=== PATIENT | female | born 1985 | race Caucasian/White ===

== ENCOUNTER 2022-07-25 14:09 | Outpatient (REF) | payer BC, SELFPAY ==
--- NOTE | 2022-07-25 13:15 | PAPFT_PTH ---
PATIENT: Jenelle Zhu LOC: [facility] U#:[id number] AGE/SX: 37/F ROOM: RE07/25/[address]: Arminda Sorto NP : 1985 BED: DIS: 07/25/2022 SPEC #: [id number] RECD: 07/25/22 18:04 STATUS: ROSA CHO #: [id number] LILI: 07/25/22 13:[address]: Arminda Sorto NP DEPT: [facility] Cytology RECD BY: Zaida Edmond ENTERED: 07/25/22 18:05 SP TYPE: PAPFT OTHR DR: Hazel Hand, INDUSTRIAL AUTOMATION ENGINEER Tissues: 1 - CX/ENDOCX FOR PAP SMEARS Procedures: PAP THIN PREP/UVM Screening HPV DNA PROBE Comments: [id number]
== END 2022-07-25 14:10 | disposition home or self-care (01) ==
LOC: LBN 14:09
PROVIDERS: PCP Nurse Practitioner Family; Visit Provider Nurse Practitioner Women's Health
DX: Z12.4 Encounter for screening for malignant neoplasm of cervix (principal); Z11.51 Encounter for screening for human papillomavirus (HPV)
CPT/HCPCS: 88142; 87624

== ENCOUNTER 2023-01-18 03:18 | Outpatient (CLI) | payer BC, SELFPAY ==
[2023-01-18 13:15] LABS: Anion Gap 8.3 mmol/L (3-11); BUN 11 mg/dL (7-18); CO2 26.7 mmol/L (21.0-32.0); CREATININE 0.6 mg/dL (0.55-1.02); Calcium 8.9 mg/dL (8.5-10.1); Calculated LDL 137 mg/dL (<100); Chloride 100 mmol/L (98-107); Cholesterol 198 mg/dL (<200); Estimated GFR 118.49 (mL/min/1.73m2); Glucose 110 mg/dL (74-106); HDL Cholesterol 44 mg/dL (40-60); Potassium 4.2 mmol/L (3.5-5.1); Sodium 135 mmol/L (136-145); TSH (W/Ref FT4) 2.03 uIU/mL (0.36-3.74); Triglyceride 89 mg/dL (<150)
[2023-01-18 13:28] LABS: Hemoglobin A1C 5.8 % (<5.7)
== END 2023-01-18 03:19 | disposition home or self-care (01) ==
PROVIDERS: PCP Nurse Practitioner Family; Visit Provider Nurse Practitioner Family
DX: Z00.00 Encounter for general adult medical examination without abnormal findings (principal)
CPT/HCPCS: 36415; 80048; 80061; 83036; 84443

== ENCOUNTER 2023-12-24 11:45 | Emergency (ER) | payer BC, SELFPAY ==
[2023-12-24 11:54] VITALS: BP 138/106; PULSE 88; RESP 18; TEMP 36.7; O2SAT 98
[2023-12-24 12:04] VITALS: BP 135/81; PULSE 74; RESP 16; TEMP 36.6; O2SAT 95
--- NOTE | 2023-12-24 12:05 | ED.GENADUL_ITS ---
Discharge Plan Disposition Patient Disposition: Home Condition: Stable Discharge Details Clinical Impression: Molluscum contagiosum infection, Cellulitis of dorsum of hand, Cellulitis of left leg without foot Primary Care Provider: Hazel Hand ED Provider: Cristel Clifton Home Meds and New Rx's Prescriptions: New cephalexin 500 mg capsule 500 mg PO BID 7 Days Qty: 14 0RF Rx Instructions: Take 1 capsule by mouth twice daily for the next 7 days Continued albuterol sulfate [Proventil HFA] 90 mcg/actuation HFA aerosol inhaler 2 puff inhalation Q6H PRN (Reason: shortness of breath or wheezing) Qty: 8.5 0RF buspirone 5 mg tablet 5 mg PO BID PRN (Reason: anxiety) Qty: 180 3RF multivitamin Tablet 1 tab PO DAILY mupirocin 2 % ointment 1 applic topical TID Qty: 15 0RF Rx Instructions: apply three times daily for 7 days clindamycin phosphate 1 % gel 1 applic topical DAILY PRN (Reason: acne) Qty: 60 3RF Discharge Instructions Instructions: Molluscum Contagiosum (DC), Cellulitis (Skin Infection), Adult ED Additional Instructions: Please take the antibiotic as directed twice daily with yogurt or a probiotic as prescribed. At this time it does appear to be molluscum contagiosum with surrounding infection. Please continue using the mupirocin ointment as previously prescribed. I will also give you an oral antibiotic twice daily for the next 7 days. Keep clean and dry. May keep covered in order to prevent spreading of this viral skin condition. You may try [id number]-mwq-[id number] remedies such as molluscum Rx, apple cider vinegar applied with a Q-tip once or twice daily. Try not to pick or scratch at the lesions. Follow up with primary care provider in 3-5 days for a recheck. Return to ED sooner if any worsening spreading redness after 2 to 3 days of the antibiotic, fever or chills, vomiting or concerns. Stand Alone Forms: Work Release Referrals: Hazel Hand, DIRECT SALES PROFESSIONAL [Primary Care Provider] - 3 days (rash re-check) Discharge Data Discharge Date/Time-TO BE ENTERED AT DEPARTURE: 12/24/23 12:38 HPI General Mode of arrival: ambulatory . Date/Time Provider Initiated Documentation: 12/24/23 11:59 . Limitations to Documentation: no limitations . Information obtained by: patient, RN notes reviewed and old records reviewed . HPI Narrative: 38-year-old female presents to the ER with chief complaint of rash and left hand cellulitis with red streaking up past the wrist which began yesterday. Patient was seen at [facility] yesterday and was prescribed mupirocin cream which she has been applying to the right lower extremity lesion and the hand lesions. She noted couple more popping up onto her chest and left forearm. She does have swelling and induration around the lesion on her left hand. 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 She now has some red dome-shaped papules with a central umbilication or depression. She does report a family member with molluscum contagiosum. Denies any fever chills nausea vomiting or any other systemic symptoms at this time. Related Data Home Medications ?Medication ?Instructions ?Recorded ?Confirmed albuterol sulfate 90 mcg/actuation 2 puff inhalation Q6H PRN 05/07/22 12/07/22 aerosol inhaler (Proventil HFA) shortness of breath or wheezing #8.5 grams buspirone 5 mg tablet 5 mg PO BID PRN anxiety #180 tabs 05/07/22 12/07/22 clindamycin phosphate 1 % topical 1 applic topical DAILY PRN acne 05/30/22 12/07/22 gel #60 grams multivitamin 1 tab PO DAILY 07/25/22 12/07/22 mupirocin 2 % topical ointment 1 applic topical TID #15 grams 12/23/23 12/23/23 cephalexin 500 mg capsule 500 mg PO BID Cellulitis 7 days 12/24/23 #14 caps Previous Rx's ?Medication ?Instructions ?Recorded albuterol sulfate 90 mcg/actuation 2 puff inhalation Q6H PRN 05/07/22 aerosol inhaler (Proventil HFA) shortness of breath or wheezing #8.5 grams buspirone 5 mg tablet 5 mg PO BID PRN anxiety #180 tabs 05/07/22 clindamycin phosphate 1 % topical 1 applic topical DAILY PRN acne 05/30/22 gel #60 grams mupirocin 2 % topical ointment 1 applic topical TID #15 grams 12/23/23 cephalexin 500 mg capsule 500 mg PO BID Cellulitis 7 days 12/24/23 #14 caps Allergies Allergy/AdvReac Type Severity Reaction Status Date / Time No Known Allergies Allergy Verified 12/24/23 11:59 General Stated Complaint: Cellulitis KAITLIN: 3 Review of Systems Integumentary/Breasts Skin/Breast: Reports as per HPI, Reports new lesions, Reports erythema, Reports rash, Reports skin swelling and Reports skin ulcer Exam Const General: cooperative, healthy appearing, well developed and anxious Nutritional Appearance: average body habitus Orientation: alert, awake and oriented x3 Resp Effort & Inspection: normal respiratory effort and able to speak in complete sentences Auscultation: clear to auscultation bilaterally Cardio Rate: regular rate Rhythm: regular rhythm Heart Sounds: S1 normal and S2 normal Skin General skin exam: turgor normal Lesions: lesion noted right anterior lower leg , papule left posterior 2nd finger size (2mm), borders well-defined and color red Rashes: rashes noted Extrem Hand/finger images: 2 1. Approximately 3 to 5 mm round papule with a central depression noted with surrounding induration swelling and red streak up past her wrist. 2. Approximately 1 to 2 mm papule with central depression no surrounding induration or swelling or red streaks. Right lower extremity: lower leg Details: localized swelling and other Upper/lower leg/hip images: 2 1. Approximately 2 cm area of induration redness with a central ulceration some purulent drainage. Course Vital Signs Vital signs: Vital Signs Temperature 36.7 C 12/24/23 11:54 Pulse 88 12/24/23 11:54 Respiratory Rate 18 12/24/23 11:54 Blood Pressure 138/106 H 12/24/23 11:54 Pulse Oximetry 98 12/24/23 11:54 Temperature 36.7 C 12/24/23 11:54 Pulse 88 12/24/23 11:54 Respiratory Rate 18 12/24/23 11:54 Blood Pressure 138/106 H 12/24/23 11:54 Pulse Oximetry 98 12/24/23 11:54 Medical Decision Making 38-year-old female presents to the ER with chief complaint of rash and left hand cellulitis with red streaking up past the wrist which began yesterday. Patient was seen at [facility] yesterday and was prescribed mupirocin cream which she has been applying to the right lower extremity lesion and the hand lesions. She noted couple more popping up onto her chest and left forearm. She does have swelling and induration around the lesion on her left hand. 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 She now has some red dome-shaped papules with a central umbilication or depression. She does report a family member with molluscum contagiosum. Denies any fever chills nausea vomiting or any other systemic symptoms at this time. Will instruct patient to continue with mupirocin cream however, I will also place patient on a systemic antibiotic cephalexin. Also discussed [id number]-zmc-[id number] remedies for molluscum contagiosum as this is his viral illness. Differential diagnosis includes but not limited to herpes, contact dermatitis, insect bite, wart, however there is no lesions noted to her palms or soles, All patient's questions were answered to the best my ability. Instructed on home care and follow-up care strict return instructions. This text was generated using cheerappation system, please disregard any oddities of phrase or misspellings. Quality:SDOH Health Related Social Needs: 2 No Data to Display PFSH All Active Problems (Updated 12/24/23 @ 12:22 by Cristel Clifton NP) Cellulitis of left leg without foot (Acute) Cellulitis of dorsum of hand (Acute) Molluscum contagiosum infection (Acute) Prediabetes (Chronic) Major depressive disorder, recurrent (Chronic) Generalized anxiety disorder (Chronic) Hyperlipidemia (Chronic) Obesity (BMI 30-39.9) (Chronic) Medical History GERD (gastroesophageal reflux disease) Family History Mother No problems noted. Father No problems noted. Brother No problems noted. Daughter No problems noted. Maternal Grandfather , 55 Hyperlipidemia Heart disease Myocardial infarction Paternal Grandfather , 85 Lung cancer Maternal Grandmother Breast cancer Paternal Grandmother No problems noted. Social History Smoking/Tobacco Use Status: Former Tobacco Use tobacco type: cigarettes Tobacco: How many years used: 9 Second Hand Exposure: Yes Smoking risk assessment performed?: Yes Alcohol Intake: current Alcohol Intake frequency: a few times a week Alcohol type: beer, wine and hard liquor Drug use: Never Caregiver/Support person: No Household members: children Housing: apartment Communication Needs: None Do you need help understanding health information?: Never Pets and animals: No Sexually active: Yes Do you think of yourself as: straight/heterosexual Current gender identity: female What is your relationship status?: never How often do you talk on the phone with friends or family?: three or more times per week How often do you get together with friends or relatives?: three or more times per week How often do you attend muslim or jain services?: decline to answer Do you belong to any clubs or organized social groups?: no Panel score (0-1 are the most socially isolated patients): 1 What type of physical activity do you participate in: walking Duration: 15-30 minutes/day Frequency: 3-4 times per week Special ron needs: No Seatbelt use: always Helmet use: Yes Helmet use: always Drive intox or ride w/intox driver material handler: No Do you feel safe at home: Yes Do you feel safe in your relationship?: Yes Female Reproductive History Menstrual Age of Menarche: 13 Duration of menses: 3-5 days control method: none History History 2 2 Para Hx # Term Pregnancies Multiple births Hx # Pregnancies 1 Ectopic pregnancies AB induced 1 Hx Number of Living Children AB spontaneous Past Pregnancies Del. Date GA/Weeks # Preg Succ Route Wgt Sex [facility] 04/24/18 33 Yes vaginal 2296.311 g Female [place], [place] Delivery Date: 04/24/18 Last Updated by: Tootie Sterling Madiha- preeclampsia
[2023-12-24] MEDS: Cephalexin 500 MG CAP PO (12:23)
== END 2023-12-24 12:38 | disposition home or self-care (01) ==
LOC: ER 12:31
PROVIDERS: Emergency Provider Registered Nurse Emergency; PCP Nurse Practitioner Family
DX: L03.114 Cellulitis of left upper limb (principal); L03.116 Cellulitis of left lower limb
CPT/HCPCS: 99283

== ENCOUNTER 2024-04-23 01:19 | Outpatient (CLI) | payer BC, SELFPAY ==
--- NOTE | 2024-04-23 06:25 | ETT_ITS ---
APPROVED REPORT Exam: Exercise Treadmill Patient Location: Out-Patient Room/Bed: Stress Nurse: Clayton Francisco, CAMERON and Niharika Winston RN Ordering Provider:INOCENTE NARINDER, Contact Number: [phone] BMI: 32.57 Baseline Rhythm: Sinus Rhythm. Indications: Chest Pain. Medical History Medical History: GERD; Hyperlipidemia; Prediabetes; Generalized Anxiety Disorder; Major Depressive Di sorder; Former Smoker; Obesity. Cardiac Medications: Albuterol Sulfate; Buspirone; Lexapro. Allergies: None. Cardiac Risk Factors: Family Hx; Hyperlipidemia; Prediabetes; Asthma; Former Smoker; Obesity. Previous Cardiac Procedures: None. Pretest Chest Pain Characteristics: Pt. was c/o 05/29, dull, chest pressure in her left upper chest th at started while pt. and RN were talking. Pt. stated, I know it's there. Upon starting exercise, du ring exercise, and during recovery, pt. denied all chest pain/pressure. Exercise History: Indeterminate. Physical Disabilities: None. Lung Sounds: Clear bilaterally throughout, anterior and posterior. Heart Sounds: S1 and S2 auscultated. Stress Test Details Test: Exercise stress testing was performed using a Cliff protocol. Rest Stress HR Resting HR Supine: 79 bpm Max Heart Rate (APMHR): 181 bpm Resting HR Standin bpm Target HR (85% APMHR): 154 bpm Max HR Achieved: 156 bpm % of APMHR: 86 Recovery HR: 92 bpm HR response to stress: Normal HR response to stress. BP Resting BP Supine: 112/82 mmHg Resting BP Standin/90 mmHg Max BP: 144/84 mmHg Recovery BP: 116/84 mmHg BP response to stress: Normal blood pressure response to stress. ECG Resting ECG: Sinus Rhythm. Ectopy: None. Stress ECG: Sinus Tachycardia. ST Change: No significant ST segment changes noted. Arrhythmia: None. Recovery ECG: Sinus Rhythm. Recovery ST Change: No significant ST segment changes noted. Recovery Arrhythmia: None. Clinical Reason for Termination: Target HR Achieved. Stress Symptoms: None. Exercise duration: 08 min55 sec Highest Stage Reached: Stage 3: 3.4 mph at 14% grade. Exercise capacity: 10.16 METs Angina Score: None Hancock Treadmill Score: 8.6 Rate Pressure Product: [id number] Stress ECG Conclusion 1. Resting electrocardiogram was normal 2. Patient exercised on the Cliff protocol completed a workload of 10 METS 3. Normal heart rate and blood pressure response to exercise. The patient achieved 86% of predicted heart rate for age 4. There was no electrocardiographic evidence of myocardial ischemia 5. There were no significant dysrhythmias Hancock Treadmill Score is 8.6 which is Low risk. Stress Test Summary STAGE Time (mins) Speed (mph) Grade (%) HR BP SpO2 SYMPTOMS METS Supine 79 112/82 95 Pt. was c/o 1/10, dull, chest pressure in her left upper chest that st arted while pt. and RN were talking. Pt. stated, I know it's there. Standing 92 120/90 97 Pt. denied any chest pressure. 1 3 1.7 10 115 124/96 96 Pt. denied any chest pressure. 4.5 2 6 2.5 12 138 120/62 Pt. denied any chest pressure. 7 3 9 3.4 14 154 95 Pt. denied any chest pressure. 10 1 min recovery 150 130/66 96 Pt. denied any chest pressure. 3 min recovery 95 144/84 97 Pt. denied any chest pressure. 6 min recovery 92 116/84 96 Pt. denied any chest pressure. Pt. was c/o 1/10, dull, chest pressure in her left upper chest that started while pt. and RN were phil brandy. Pt. stated, I know it's there. Upon starting exercise, during exercise, and during recovery, pt. denied all chest pain/pressure. Pt. was conversing pleasantly with nursing staff upon leaving the Stress Lab. Pt. left ambulatory in no apparent distress.
== END 2024-04-23 01:39 ==
LOC: DI 01:21
PROVIDERS: PCP Nurse Practitioner Family; Visit Provider Nurse Practitioner Family
DX: R07.9 Chest pain, unspecified (principal)
CPT/HCPCS: 93017

== ENCOUNTER 2024-05-07 01:07 | Outpatient (CLI) | payer BC, SELFPAY ==
--- NOTE | 2024-05-07 13:13 | DI.MAMMO_ITS ---
Exam(s) MAMMO SCREENING EXAM: MAMMO SCREENING CLINICAL HISTORY: screening,Z12.39,FAMILY H/O BREAST CA,Z80.3. TECHNIQUE: Bilateral full field digital CC and MLO mammographic images were obtained with 3D tomosyn thesis and utilizing computer aided detection (CAD). COMPARISON: Prior outside mammograms were sent for and arrived 05/18/2024. FINDINGS: No new significant left breast findings. The right breast on the CC view there is an area of subtle architectural distortion located 9 cm in f rom the nipple, slightly lateral of center on the CC view. Possibly related overlapping tissue but r ecommend further imaging. There are no malignant-appearing microcalcification groups in this region nor elsewhere in either gonsalo ast. No significant skin thickening-retraction. IMPRESSION: 1. No radiographic evidence of malignancy in left breast. 2. Area of architectural distortion in the right breast on CC view as described above. Recommend spo t compression view and complete breast ultrasound. BI-RADS Category 0 - Incomplete: Need additional imaging evaluation Breast Density - Category B - Scattered areas of fibroglandular density Breast density Category C or D implies that the patient has dense breast tissue. Dense breast tissue can make it harder to find cancer on a mammogram. Dense breast tissue is also associated with an incr eased risk of breast cancer. This information about the result of the mammogram report was provided to the patient to raise their awareness. Use this report when you speak with the patient about their risks for breast cancer, which includes their family history. At that time, you may recommend additional screening tests (Ultrasoun d or MRI) as these tests may add significant information. A negative radiographic report should not delay biopsy if a dominant or clinically suspicious mass is present. Up to ten percent of cancers are not identified on mammography. A negative report may reinforce clinical impression. Adenosis and dense breasts may obscure an underlying neoplasm. False positive reports average 6 to 10%. Patient will receive a letter notifying them of these results.
== END 2024-05-07 01:27 ==
LOC: DI 01:07
PROVIDERS: PCP Nurse Practitioner Family; Visit Provider Nurse Practitioner Family
DX: Z12.31 Encounter for screening mammogram for malignant neoplasm of breast (principal); Z80.3 Family history of malignant neoplasm of breast; R92.323 Mammographic fibroglandular density, bilateral breasts
CPT/HCPCS: 77063; 77067

== ENCOUNTER 2024-05-21 01:40 | Outpatient (CLI) | payer BC, SELFPAY ==
--- NOTE | 2024-05-21 | DI.US_ITS ---
Exam(s) MG MAMMO SCREEN CALL BACK UNI US BREAST RT COMPLETE EXAM: MG MAMMO SCREEN CALL BACK UNI-RIGHT AND COMPLETE RIGHT BREAST ULTRASOUND CLINICAL HISTORY: F/U MAMMO, R92.8,RT ARCHITECTURAL DISTORTION. TECHNIQUE: Unilateral RIGHT BREAST spot mammographic images obtained with 3D tomosynthesisand utiliz ing computer aided detection (CAD). . Complete RIGHT breast Ultrasound was also performed, including all 4 quadrants, the retroareolar karen on, and the ipsilateral axilla. COMPARISON: Prior mammograms were reviewed. This additional imaging was performed due to findings described on the recent screening mammogram of 05/07/2024. FINDINGS: DIAGNOSTIC MAMMOGRAM: Additional mammographic views performed todayrender this area less concerning. COMPLETE RIGHT BREAST ULTRASOUND: Ultrasound performed today reveals 2 benign microcysts which are both at 9 o'clock position. The lar rainer of these 2 microcysts measures 7 x 3 mm and may correspond to the finding described on the recent mammogram. The smaller benign microcysts at the 9 o'clock position measures 4 x 3 mm. Most importantly, there are no solid lesions in all 4 quadrants right breast. Scanning of the ipsilateral axilla reveals no significant adenopathy. IMPRESSION: 1. No radiographic evidence of malignancy. 2. There are 2 benign microcysts at the 9 o'clock position noted on the ultrasound. Appropriate follow-up is to keep this patient on her yearly mammogram schedule, with earlier imaging if a self detected breast change is noted The patient was informed of these findings and recommendations myself prior to leaving the department today. BI-RADS Category 2 - Benign Findings Breast Density - Category B - Scattered areas of fibroglandular density Breast density Category C or D implies that the patient has dense breast tissue. Dense breast tissue can make it harder to find cancer on a mammogram. Dense breast tissue is also associated with an incr eased risk of breast cancer. This information about the result of the mammogram report was provided to the patient to raise their awareness. Use this report when you speak with the patient about their risks for breast cancer, which includes their family history. At that time, you may recommend additional screening tests (Ultrasoun d or MRI) as these tests may add significant information. A negative radiographic report should not delay biopsy if a dominant or clinically suspicious mass is present. Up to ten percent of cancers are not identified on mammography. A negative report may reinforce clinical impression. Adenosis and dense breasts may obscure an underlying neoplasm. False positive reports average 6 to 10%. Patient will receive a letter notifying them of these results.
== END 2024-05-21 02:00 ==
LOC: DI 01:40
PROVIDERS: PCP Nurse Practitioner Family; Visit Provider Nurse Practitioner Family
DX: R92.8 Other abnormal and inconclusive findings on diagnostic imaging of breast (principal); Z12.31 Encounter for screening mammogram for malignant neoplasm of breast; R92.323 Mammographic fibroglandular density, bilateral breasts; D24.1 Benign neoplasm of right breast
CPT/HCPCS: 76642; 77063; 77067

== ENCOUNTER 2024-07-09 01:13 | Outpatient (CLI) | payer BC, SELFPAY ==
[2024-07-09 10:38] LABS: HCT 38.3 % (36.0-46.0); HGB 12.6 g/dL (11.2-15.7); MCH 27.5 pg (27.0-33.0); MCHC 32.9 % (32.0-36.0); MCV 83 fL (80-95); MPV 10.4 fL (8.0-11.0); Platelet Count 289 10^3/uL (130-400); RBC 4.59 10^6/uL (3.93-5.22); RDW 12.5 % (11.7-14.6); RDW-SD 37.7 fL; WBC 8.31 10^3/uL (4.4-10.8)
[2024-07-09 13:45] LABS: ALT 21 U/L (14-59); AST 19 U/L (15-37); Albumin 3.9 g/dL (3.4-5.0); Alkaline Phosphatase 51 U/L (46-116); Anion Gap 7.9 mmol/L (3-11); BUN 10 mg/dL (7-18); Bilirubin, Total 0.29 mg/dL (0.2-1.0); CO2 25.1 mmol/L (21.0-32.0); CREATININE 0.6 mg/dL (0.55-1.02); Calcium 8.9 mg/dL (8.5-10.1); Calculated LDL 156 mg/dL (<100); Chloride 104 mmol/L (98-107); Cholesterol 225 mg/dL (<200); Estimated GFR 117.02 (mL/min/1.73m2); Glucose 106 mg/dL (74-106); HDL Cholesterol 52 mg/dL (40-60); Sodium 137 mmol/L (136-145); Total Protein 7.8 g/dL (6.4-8.2); Triglyceride 87 mg/dL (<150)
[2024-07-09 14:49] LABS: Hemoglobin A1C 5.9 % (<5.7)
== END 2024-07-09 01:14 | disposition home or self-care (01) ==
LOC: LBO 01:13
PROVIDERS: Nurse Practitioner Family; PCP Nurse Practitioner Family; Visit Provider Nurse Practitioner Family
DX: Z00.00 Encounter for general adult medical examination without abnormal findings (principal); R21 Rash and other nonspecific skin eruption; H93.8X2 Other specified disorders of left ear; R73.03 Prediabetes; E78.5 Hyperlipidemia, unspecified; F41.1 Generalized anxiety disorder; F33.9 Major depressive disorder, recurrent, unspecified
CPT/HCPCS: 36415; 80053; 80061; 85027; 83036

== ENCOUNTER 2025-04-02 00:23 | Outpatient (CLI) | payer BC, SELFPAY ==
[2025-04-02 14:41] LABS: TSH (W/Ref FT4) 2.30 uIU/mL (0.55-4.78)
[2025-04-02 23:28] LABS: Hepatitis C Ab w Rflx HCV PCR Negative (Negative)
[2025-04-02 23:31] LABS: HBs Antibody, Quant 3.5 mIU/mL (See Note); Hepatitis B Surface Antigen Negative (Negative)
[2025-04-02 23:33] LABS: HIV-1/2 Ag & Ab Screen Negative (Negative)
== END 2025-04-02 00:24 | disposition home or self-care (01) ==
LOC: LOS 00:23
PROVIDERS: PCP Nurse Practitioner Family; Visit Provider Nurse Practitioner Family
DX: Z11.59 Encounter for screening for other viral diseases (principal); Z11.4 Encounter for screening for human immunodeficiency virus [HIV]; L83 Acanthosis nigricans
CPT/HCPCS: 36415; 86704; 86706; 86803; 87340; 87389; 84443